=== PATIENT | male | born 1960 | race Caucasian/White ===

== ENCOUNTER 2018-09-07 05:37 | Observation (INO) | END 2018-09-08 13:11 | disposition home or self-care (01) ==

== ENCOUNTER 2018-11-16 05:32 | Inpatient (IN) | payer OTHER ==
[~2018-11-16] VITALS: Ht 175.3 cm; Wt 77.0 kg
[2018-11-16] VITALS (9 sets, daily range): BP systolic 120–183; BP diastolic 63–91; PULSE 78–106; RESP 16–20; Ht 175.3 cm; Wt 77.0 kg
[~2018-11-16 05:32] MED LIST: ALBU90AE INHALATION; AMLO-145 PO; ASPI-903 PO; ATOR20TA38 PO; DIAZ10TA4 PO; FER325 PO; FLUT1AER INH; LEVO750T8 PO; PRED20TA PO; SITA1TAB5 PO; TIOT18CA INH
[2018-11-16] MEDS ORDERED: METHYLPREDNISOLONE 125 MG INJ IV STA (06:10)
[2018-11-16] MEDS ORDERED: IPRATROPIUM (NEB) 0.5 MG/2.5 ML AMP NEB STA (06:10)
[2018-11-16] MEDS ORDERED: ALBUTEROL 0.083% (NEB) 2.5 MG/3 ML AMP NEB STA (06:10)
[2018-11-16] MEDS ORDERED: ASPIRIN 81 MG TAB PO STA (06:10)
[2018-11-16] MEDS ORDERED: AZITHROMYCIN 500MG/NS (PMX) 250 ML IVPB ONE (06:30)
[2018-11-16] MEDS ORDERED: SOD CHLORIDE 0.9% 0 ML IV ONE (07:22)
[2018-11-16] MEDS ORDERED: ONDANSETRON 4 MG INJ IV PRN ×2 (08:00→10:30)
[2018-11-16] MEDS ORDERED: SIMV20TA PO (08:00)
[2018-11-16] MEDS ORDERED: HUM100IN4 SC* (08:00)
[2018-11-16] MEDS ORDERED: ACETAMINOPHEN 325 MG TAB PO PRN ×2 (08:00→10:30)
[2018-11-16] MEDS ORDERED: FUROSEMIDE 40 MG INJ IV ONE (08:00)
[2018-11-16] MEDS ORDERED: AMLO-147 ORAL (08:02)
[2018-11-16] MEDS ORDERED: ASPI-817 PO (08:02)
[2018-11-16] MEDS ORDERED: CARV12.598 PO (08:02)
--- NOTE | 2018-11-16 08:03 | ERD ---
ER Documentation Chief Complaint Chief Complaint shortness of breath upon waking up. also c/o cp. hx of copd HPI Patient is a 58-year-old male with COPD and diabetes who presents with shortness of breath. The patient says "it feels like the same as the last time when I had COPD". He has chest pain. He has cough and pain with breathing. He felt sweaty at home. He does not use home oxygen. The symptoms started a few hours ago. He tried his inhaler. Upon review of old medical records the patient one previous visit to the ER in August 2018 and was admitted for COPD. ROS All systems reviewed and are negative except as per history of present illness. Medications Home Meds Active Scripts Amlodipine Besylate* (Amlodipine Besylate*) 5 Mg Tablet, 5 MG PO BID for 30 Da ys, #60 TAB 3 Refills Prov:AMERICA VANESSA 09/08/18 Levofloxacin* (Levofloxacin*) 750 Mg Tablet, 750 MG PO Q48H for 6 Days, #3 TAB Prov:AMERICA VANESSA 09/08/18 Prednisone* (Prednisone*) 20 Mg Tab, 40 MG PO DAILY for 7 Days, TAB See prescription for taper. Prov:AMERICA VANESSA 09/08/18 Albuterol Sulfate (Proair Respiclick) 90 Mcg Aer.pow.ba, 2 PUFFS INHALATION Q6 PRN for SHORTNESS OF BREATH, #1 BOTTLE 3 Refills Prov:AMERICA VANESSA 09/08/18 Fluticasone-Vilanterol (Breo Ellipta Inhaler) 100-25 Mcg/Actuation Aer.pow.ba, 1 INH INH DAILY, #1 INHALER 3 Refills Prov:AMERICA VANESSA 09/08/18 Ferrous Sulfate* (Ferrous Sulfate*) 325 Mg Tabec, 325 MG PO DAILY for 30 Days, TAB 3 Refills Prov:AMERICA VANESSA 09/08/18 Tiotropium [place]* (Spiriva*) 18 Mcg Cap.w.dev, 1 INH INH DAILY, #1 INHALER 3 Refills Prov:AMERICA VANESSA 09/08/18 Reported Medications Atorvastatin Calcium* (Atorvastatin Calcium*) 20 Mg Tablet, 20 MG PO QHS, #30 TAB 09/07/18 Diazepam* (Diazepam*) 10 Mg Tablet, 10 MG PO DAILY, TAB 09/07/18 Aspirin* (Aspirin* Chew) 81 Mg Tab.chew, 81 MG PO DAILY, TAB.CHEW 09/07/18 Sitagliptin Phos/Metformin HCl (Janumet 50-1,000 mg Tablet) 1 Each Tablet, 1 EACH PO BID, TAB 09/07/18 Allergies Allergies: Coded Allergies: No Known Allergy (Unverified , 09/07/18) PMhx/Soc History of Surgery: No Anesthesia Reaction: No Hx Neurological Disorder: No Hx Respiratory Disorders: Yes (COPD) Hx Cardiac Disorders: Yes (HTN) Hx Psychiatric Problems: No Hx Miscellaneous Medical Probl: Yes (DM) Hx Alcohol Use: Yes (once a month) Hx Substance Use: No Hx Tobacco Use: Yes Smoking Status: Current every day smoker FmHx Family History: No diabetes Physical Exam Vitals Vital Signs Date Temp Pulse Resp B/P (MAP) Pulse Ox O2 O2 Flow FiO2 Time Delivery Rate 11/16/18 88 100 07:58 11/16/18 85 19 87 Nasal 3.0 06:49 Cannula 11/16/18 98.3 100 31 166/74 76 Nasal 5.0 06:30 (104) Cannula 11/16/18 Nasal 4.0 05:55 Cannula 11/16/18 98.3 90 20 157/74 93 Nasal 4.0 05:55 (101) Cannula 11/16/18 Nasal 4 05:55 Cannula 11/16/18 98.3 98 20 185/81 86 05:35 (115) Physical Exam Const: Moderate distress Head: Atraumatic Eyes: Normal Conjunctiva ENT: Normal External Ears, Nose and Mouth. Neck: Full range of motion. No meningismus. Resp: Decreased breath sounds bilaterally Cardio: Regular rate and rhythm, no murmurs Abd: Soft, non tender, non distended. Normal bowel sounds Skin: Pale skin Back: No midline or flank tenderness Ext: No cyanosis, or edema Neur: Awake and alert Psych: Normal Mood and Affect Result Diagram: 11/16/18 0553 11/16/18 0545 Results 24 hrs Laboratory Tests Test 11/16/18 05:45 11/16/18 05:53 Sodium Level 140 mmol/L Potassium Level 4.9 mmol/L Chloride Level 107 mmol/L Carbon Dioxide Level 23 mmol/L Anion Gap 10 Blood Urea Nitrogen 46 mg/dl Creatinine 2.85 mg/dl Est Glomerular Filtrat Rate mL/min 23 mL/min Glucose Level 248 mg/dl Calcium Level 9.1 mg/dl Troponin I 0.027 ng/ml B-Type Natriuretic Peptide 9510 PG/ML White Blood Count 16.1 10^3/ul Red Blood Count 2.54 10^6/ul Hemoglobin 7.8 g/dl Hematocrit 23.5 % Mean Corpuscular Volume 92.5 fl Mean Corpuscular Hemoglobin 30.7 pg Mean Corpuscular Hemoglobin Concent 33.2 g/dl Red Cell Distribution Width 13.6 % Platelet Count 248 10^3/UL Mean Platelet Volume 11.0 fl Immature Granulocytes % 0.700 % Neutrophils % 66.8 % Lymphocytes % 25.7 % Monocytes % 5.0 % Eosinophils % 1.5 % Basophils % 0.3 % Nucleated Red Blood Cells % 0.0 /100WBC Immature Granulocytes # 0.110 10^3/ul Neutrophils # 10.8 10^3/ul Lymphocytes # 4.1 10^3/ul Monocytes # 0.8 10^3/ul Eosinophils # 0.2 10^3/ul Basophils # 0.1 10^3/ul Nucleated Red Blood Cells # 0.0 10^3/ul Current Medications Medications Dose Sig/Jacklyn Start Time Status Last (Trade) Ordered Route PRN Stop Time Admin Dose Reason Admin Aspirin 162 mg ONCE STAT 11/16/18 DC 11/16/18 (Aspirin) PO 06:10 06:25 11/16/18 06:12 Albuterol 5 mg ONCE STAT 11/16/18 DC 11/16/18 (Proventil NEB 06:10 06:49 0.083% (Neb)) 11/16/18 06:12 Ipratropium 0.5 mg ONCE STAT 11/16/18 DC 11/16/18 [place] NEB 06:10 06:49 (Atrovent 11/16/18 06:12 0.02% (Neb)) 125 mg ONCE STAT 11/16/18 DC 11/16/18 Methylprednis IV 06:10 06:24 olone Sodium 11/16/18 06:12 Succinate (Solu-Medrol) Azithromycin 250 ml @ ONCE ONCE 11/16/18 DC 11/16/18 250 mls/hr IVPB 06:30 06:25 11/16/18 07:29 Sodium 0 ml @ 0 Q0M ONCE 11/16/18 DC Chloride mls/hr IV 07:22 11/16/18 07:23 Furosemide 40 mg ONCE ONCE 11/16/18 (Lasix) IV 08:00 11/16/18 08:01 Ondansetron 4 mg ER BRIDGE 11/16/18 HCl (Zofran PRN IV 08:00 Inj) NAUSEA/VOMITI 11/17/18 07:59 NG 650 mg ER BRIDGE 11/16/18 Acetaminophen PRN PO 08:00 (Tylenol .MILD PAIN 11/17/18 07:59 Tab) 1-3 OR TEMP Procedures/MDM Chest x-ray shows pulmonary edema per radiology. EKG read by me: Rate/Rhythm: Regular rate and rhythm at a normal rate Intervals: Normal Impression: No evidence of ischemia or arrhythmia Smoking Cessation Therapy: Pt. was lectured for greater than 3 minutes on the health risks of continued smoking and the benefits of cessation. Patient is a 58-year-old male with COPD and diabetes who presents with shortness of breath and hypoxia. Chest x-ray does not show pneumothorax or pneumonia. There is pulmonary edema and the patient will be given Lasix 40 mg IV. The patient was started on high flow nasal cannula oxygen for hypoxia. I also considered pulmonary embolism but the patient has a creatinine of 2.85 and cannot receive a CT scan of the chest with contrast at this time. Therefore the patient will be admitted and may need a VQ scan. I spoke with Dr. Vazquez who is covering [facility]. [facility]. He is going to be transfused 2 units of packed red blood cells for hemoglobin of 7.8 which is anemic. There may be an issue with oxygen carrying capacity causing an issue with the hypoxia as well. The patient will be admitted to a telemetry bed. Critical Care: Time: 35 minutes excluding all billable proce dures. Treatments/Evaluations: Close monitoring and treatment of unstable vital signs, cardiorespiratory, and neurologic status, while maintaining tight balance of fluid, respiratory, and cardiac interventions. Departure Diagnosis: Primary Impression: Hypoxia Additional Impressions: Shortness of breath Anemia Anemia type: unspecified type Qualified Codes: D64.9 - Anemia, unspecified Condition: Serious DONNA GALAN MD Nov 16, 2018 08:03
[2018-11-16] MEDS ORDERED: LOSA100T15 ORAL (08:09)
[2018-11-16] MEDS ORDERED: VALS1TAB74 ORAL (08:09)
[2018-11-16] MEDS ORDERED: CLON-379 PO (08:09)
[2018-11-16] MEDS ORDERED: NACL 0.9% 3 ML SYG IV SCH (10:30)
[2018-11-16] MEDS ORDERED: NON-FORMULARY/PATIENT OWN MED (Sitagliptin Phos/Metformin HCl (Janumet 50-1,000 mg Tablet) PO SCH (10:30)
[2018-11-16] MEDS ORDERED: ZOLPIDEM 5 MG TAB PO PRN (10:30)
[2018-11-16] MEDS ORDERED: DOCUSATE SODIUM 100 MG CAP PO PRN (10:30)
[2018-11-16] MEDS ORDERED: GLUCOSE GEL 15 GRAM TUBE BUCCAL PRN (11:00)
[2018-11-16] MEDS ORDERED: GLUCAGON 1 MG INJ IM PRN (11:00)
[2018-11-16] MEDS ORDERED: GLUCOSE GEL 15 GRAM TUBE PO PRN ×2 (11:00)
[2018-11-16] MEDS ORDERED: DEXTROSE 50% 50 ML SYRINGE IV PRN ×2 (11:00)
[2018-11-16] MEDS: AMLODIPINE 10 MG TAB PO SCH (11:01)
[2018-11-16] MEDS: LOSARTAN 50 MG TAB PO SCH (11:02)
[2018-11-16] MEDS: ASPIRIN (EC) 81 MG TAB PO SCH (11:06)
[2018-11-16] MEDS: AZITHROMYCIN 250 MG TAB PO SCH (11:06)
[2018-11-16] MEDS: FAMOTIDINE 20 MG TAB PO SCH ×2 (11:06→21:00)
[2018-11-16] MEDS: ENOXAPARIN 40 MG/0.4 ML SYG SC SCH (11:20)
[2018-11-16] MEDS: INSULIN ASPART [NOVOLOG] 3 ML PEN SC SCH ×2 (11:34→17:46)
[2018-11-16] MEDS: METHYLPREDNISOLONE 125 MG INJ IV SCH ×2 (11:36→17:40)
[2018-11-16] MEDS: ALBUTEROL/IPRATROPIUM (NEB) 3 ML AMP HHN SCH ×3 (12:35→21:10)
--- NOTE | 2018-11-16 13:38 | HP ---
DATE OF ADMISSION: 11/16/2018 CHIEF COMPLAINT: Shortness of breath. HISTORY OF PRESENT ILLNESS: A 58-year-old male with history of COPD, chronic smoking, hypertension a nd type 2 diabetes mellitus, presented to emergency room with complaint of increasing shortness of br eath x1 day. The patient continues to smoke about half a pack of cigarettes per day. He was admitte d in 08/2018 with similar presentation and COPD exacerbation. On review of systems, he denies any ch est pain. He has had mild cough of clear sputum. No abdominal pain, nausea, vomiting. No fevers or chills. Initial evaluation revealed evidence of profound hypoxia. Oxygen saturation was in low 80s despite 3 to 4 liters of oxygen. The patient was placed on high flow oxygen. His hemoglobin was 7. 8. He denies any hematemesis. No bright red blood per rectum or melena. Chest x-ray showed mild di ffuse interstitial prominence most suggestive of interstitial edema in the acute setting. No infiltr ate was noted. PAST MEDICAL HISTORY: 1. COPD. 2. Hypertension. 3. Hyperlipidemia. 4. Type 2 diabetes mellitus. 5. Chronic smoker. MEDICATIONS PRIOR TO ADMISSION: 1. Albuterol. 2. Spiriva. 3. Iron supplements. 4. Amlodipine. 5. Coreg. 6. Clonidine. 7. Losartan. 8. Simvastatin. 9. Aspirin. 10. Diazepam. 11. Fluticasone and vilanterol inhaler. 12. Insulin 70/30. 13. Janumet. SOCIAL HISTORY: The patient admits to continuous smoking of at least half pack of cigarettes per day . He drinks alcohol on social occasions. PHYSICAL EXAMINATION: GENERAL: Well-developed, well-nourished, obese male who is in mild respiratory distress. VITAL SIGNS: Stable. He is afebrile. HEENT: Extraocular muscles are intact. Pupils are equal and reactive to light bilaterally. Sclerae are anicteric. Oropharynx is clear and moist. NECK: Supple. No JVD, no carotid bruits. LUNGS: Decreased breath sounds in all segura. No wheezes. CARDIAC: Regular rate and rhythm. No murmurs, rubs or gallops. ABDOMEN: Soft, nontender, nondistended. Normoactive bowel sounds. EXTREMITIES: No clubbing, cyanosis or edema. NEUROLOGICAL: Nonfocal. LABORATORY DATA: White blood cell count 16.1, hemoglobin 7.8, MCV is 92.5, platelet count is 248,000 . Sodium 140, potassium 4.9, chloride 107, bicarbonate 23, BUN 46, creatinine 2.85, glucose is 248. BNP is 9510. Troponin is 0.027. Serum iron is 35, TIBC is 267, percent saturation is 13. ASSESSMENT: 1. A 58-year-old male presenting with acute chronic obstructive pulmonary disease exacerbation. 2. Acute hypoxemic respiratory failure. 3. Chronic anemia with no evidence of gastrointestinal bleed. 4. Hypertension. 5. Type 2 diabetes mellitus. 6. Hyperlipidemia. 7. Stage III chronic kidney disease. 8. Chronic smoker. PLAN: 1. Admit to telemetry. 2. IV Solu-Medrol. 3. Respiratory treatments. 4. Oral Zithromax. 5. Pulmonary consultation was requested. Dictated By: PACO HAMMONDS/JUAN M Conf#: [id number] DID#: [id number]
[2018-11-16] MEDS: TIOTROPIUM 18 MCG CAPSULE INHA DEV INH SCH (16:30)
[2018-11-16] MEDS: FLUTICASONE/VILANTEROL 100-25 INH SCH (16:30)
--- NOTE | 2018-11-16 18:52 | CONS ---
DATE OF ADMISSION: 11/16/2018 DATE OF CONSULTATION: TYPE OF CONSULTATION: Pulmonary. REASON FOR CONSULTATION: Shortness of breath. Thank you, Dr. Vazquez, for this consultation. HISTORY OF PRESENT ILLNESS: This is a 58-year-old gentleman with extensive tobacco history ongoing p rior to this admission, presents with several-day history of increasing shortness of breath, orthopne a, PND, cough, no sputum production, no hemoptysis or hematemesis, was found to have moderate hypoxem ia on admission and moderate anemia. Denies any hemoptysis, hematemesis. No bright red blood per re ctum. Chest x-ray showed interstitial edema. PAST MEDICAL HISTORY: COPD, hypertension, hyperlipidemia and chronic tobacco use. MEDICATION LIST: Extensive. He does not require supplemental O2 at home. SOCIAL HISTORY: Continues to smoke half to 1 pack per day. PHYSICAL EXAMINATION: GENERAL: Well-nourished, well-developed gentleman, comfortable at rest, in no acute distress. VITAL SIGNS: Currently afebrile, pulse is 80, blood pressure 170/85, O2 saturation 96%, FiO2 of 6 li ters. NECK: Supple. No JVD or lymphadenopathy. CARDIAC: S1, S2. No added sounds or murmurs. CHEST: Diminished air entry bilaterally. ABDOMEN: Soft, nontender. No guarding or rebound. EXTREMITIES: No cyanosis, clubbing, edema. NEUROLOGIC: Grossly intact. No focal deficits. LABORATORY DATA: White count 16.1, hemoglobin 7.8, platelets of 248. BUN 46, creatinine 2.85. BNP 9510. IMPRESSION AND PLAN: 1. Dyspnea, likely secondary to combination of chronic obstructive pulmonary disease exacerbation an d congestive cardiac failure likely significant diastolic dysfunction. 2. Anemia, probably secondary to renal insufficiency. Creatinine of 2.85. Unclear what his prior c reatinine was. I recommend: 1. Steroid taper. 2. Bronchodilators. 3. Echocardiogram. 4. GI consultation for colonoscopy and EGD. 5. Consider workup for multiple myeloma. 6. DVT and GI prophylaxis. Dictated By: SHEN CORONADO MD SV/NTS Conf#: [id number] DID#: [id number] CC: PACO VAZQUEZ MD;*EndCC*
[2018-11-16] MEDS ORDERED: INSULIN GLARGINE [LANTus] (100 UNITS/ML) SYG SC SCH (20:00)
[2018-11-16] MEDS: Insulin NOVOLOG SS MODERATE Algorithm(NPO/TPN/ENTERAL FEEDS) SC SCH (20:52)
[2018-11-16] MEDS: SOD CHLORIDE 0.45% 1,000 ML IV SCH (21:00)
[2018-11-16] MEDS ORDERED: INSULIN ASPART [NOVOLOG] 3 ML PEN SC SCH (21:00)
[2018-11-16] MEDS ORDERED: DIAZEPAM 5 MG TAB PO SCH (21:00)
[2018-11-17] VITALS (7 sets, daily range): BP systolic 101–148; BP diastolic 58–79; PULSE 69–80; RESP 18–19
[2018-11-17] MEDS: ALBUTEROL/IPRATROPIUM (NEB) 3 ML AMP HHN SCH ×3 (01:00→13:45)
[2018-11-17] MEDS: Insulin NOVOLOG SS MODERATE Algorithm(NPO/TPN/ENTERAL FEEDS) SC SCH ×4 (01:30→12:02)
[2018-11-17] MEDS: SOD CHLORIDE 0.45% 1,000 ML IV SCH ×2 (04:59→12:26)
[2018-11-17] MEDS: METHYLPREDNISOLONE 125 MG INJ IV SCH ×3 (05:44→11:57)
[2018-11-17] MEDS ORDERED: INSULIN ASP PROT/ASPART (70/30) PEN SC SCH (07:55)
[2018-11-17] MEDS ORDERED: AZIT250T13 PO (08:50)
[2018-11-17] MEDS: TIOTROPIUM 18 MCG CAPSULE INHA DEV INH SCH (08:57)
[2018-11-17] MEDS: FLUTICASONE/VILANTEROL 100-25 INH SCH (08:58)
[2018-11-17] MEDS ORDERED: INFLUENZA VIRUS VACCINE 0.5 ML (DISPENSING) IM* ONE (09:00)
[2018-11-17] MEDS: ASPIRIN (EC) 81 MG TAB PO SCH (09:02)
[2018-11-17] MEDS: AMLODIPINE 10 MG TAB PO SCH (09:02)
[2018-11-17] MEDS: FAMOTIDINE 20 MG TAB PO SCH (09:02)
[2018-11-17] MEDS: AZITHROMYCIN 250 MG TAB PO SCH (09:02)
[2018-11-17] MEDS: LOSARTAN 50 MG TAB PO SCH (09:03)
[2018-11-17] MEDS: ENOXAPARIN 40 MG/0.4 ML SYG SC SCH (09:08)
--- NOTE | 2018-11-17 09:28 | PDOCDIS ---
Discharge Instructions DIAGNOSIS Discharge Diagnosis 58-year-old male with acute COPD exacerbation, resolved Chronic smoker Anemia of chronic disease, status post packed RBC transfusion Hypertension Type 2 diabetes mellitus Stage IV chronic kidney disease 58-year-old male with COPD and long history of tobacco use, presented with complaint of shortness of breath. He was diagnosed with acute COPD exacerbation. Initially, patient was quite hypoxic and required high flow oxygen. He was placed on Solu-Medrol, respiratory treatments, and Zithromax. Chest x-ray did not show any infiltrates. Pulmonary consultation was requested. By the following day, his respiratory status was back to baseline. I had a long discussion with him regarding smoking cessation. Physical exam was unremarkable. Patient is in a stable condition for discharge. Repeat ABG showed PO2 of 82 on room air. I prescribed oral Zithromax. Patient will continue his home medications including inhalers. Patient was found to have hemoglobin of 7.8 on admission. There was no hematemesis, bright red blood per rectum, or melena. He received packed RBC transfusion and repeat hemoglobin was 9.2. Serum iron was at the low range of normal. Previous serum folate and B12 were normal. Anemia is most likely due to underlying renal insufficiency. However, I recommended GI evaluation as outpatient. At this point, patient is refusing endoscopy. But he said he will consider it as outpatient. CONDITION [id number] Patient Condition: [id number] Good HOME CARE INSTRUCTIONS: [id number] Diet Instructions: [id number] Activity Restrictions: [id number] No Restrictions FOLLOW UP/APPOINTMENTS Follow-up Plan PCP in 1 week Gastroenterology in 1 week PACO WETZEL MD Nov 17, 2018 09:28
--- NOTE | 2018-11-17 15:18 | CONS ---
Consult Date/Type/Reason Admit Date/Time Nov 16, 2018 at 07:53 Initial Consult Date Type of Consult Pulmonary Date/Time of Note DATE: 11/17/18 TIME: 15:15 Subjective Patient stable this morning no respiratory distress now on room air ambulating without dyspnea. Objective Vital Signs Date Temp Pulse Resp B/P (MAP) Pulse Ox O2 O2 Flow FiO2 Time Delivery Rate 11/17/18 82 20 96 21 13:52 11/17/18 98.7 101/58 Room Air 11:22 (72) 11/16/18 3.0 06:49 Intake and Output 11/16/18 11/16/18 11/17/18 1515:00 23:00 07:00 IntakeIntake Total 1600 ml 1365 ml OutputOutput Total 600 ml 300 ml BalanceBalance 1000 ml 1065 ml Exam PHYSICAL EXAMINATION: GENERAL: Well-nourished, well-developed gentleman, comfortable at rest, in no acute distress. VITAL SIGNS: As above NECK: Supple. No JVD or lymphadenopathy. CARDIAC: S1, S2. No added sounds or murmurs. CHEST: Diminished air entry bilaterally. ABDOMEN: Soft, nontender. No guarding or rebound. EXTREMITIES: No cyanosis, clubbing, edema. NEUROLOGIC: Grossly intact. No focal deficits. Vent Setting Fraction of Inspired Oxygen pe: 21 Results/Medications Result Diagram: 11/17/18 0541 11/17/18 0541 Results 24 hrs Laboratory Tests Test 11/16/18 17:36 11/16/18 17:39 11/16/18 19:01 11/16/18 20:29 Bedside Glucose 417 *H 433 *H 474 *H Glucose Level 470 #*H Test 11/17/18 01:08 11/17/18 05:33 11/17/18 05:41 11/17/18 07:07 Bedside Glucose 414 *H 276 H White Blood 16.1 H Count Red Blood Count 3.07 #L Hemoglobin 9.2 L Hematocrit 27.5 L Mean Corpuscular 89.6 Volume Mean Corpuscular 30.0 Hemoglobin Mean Corpuscular 33.5 Hemoglobin Ana nt Red Cell 14.2 Distribution Width Platelet Count 223 Mean Platelet 11.5 H Volume Immature 0.400 Granulocytes % Neutrophils % 76.3 Lymphocytes % 19.7 Monocytes % 3.5 Eosinophils % 0.0 Basophils % 0.1 Nucleated Red 0.0 Blood Cells % Immature 0.060 H Granulocytes # Neutrophils # 12.3 H Lymphocytes # 3.2 H Monocytes # 0.6 Eosinophils # 0.0 Basophils # 0.0 Nucleated Red 0.0 Blood Cells # Sodium Level 140 Potassium Level 4.8 Chloride Level 110 Carbon Dioxide 20 L Level Anion Gap 10 Blood Urea 61 H Nitrogen Creatinine 3.23 H Est Glomerular 20 L Filtrat Rate mL/min Glucose Level 281 #H Hemoglobin A1c 7.2 H Calcium Level 8.9 Lab Scanned BLOOD TRANSFUSI Report ON Test 11/17/18 08:00 11/17/18 08:27 11/17/18 11:55 Blood Gas Blood arterial Specimen Source Arterial Blood 11/17/2018 8:26: Date Drawn 51 AM Arterial Blood 7.405 pH (Temp corrected) Arterial Blood 31.4 L pCO2 (Temp correct) Arterial Blood 82.3 pO2 (Temp corrected) Arterial Blood 19.2 L HCO3 Arterial Blood -4.7 L Base Excess Arterial Blood 95.2 Oxygen Saturatio n Jorge Alberto Test ACCEPTAB Arterial Blood Left Radial Gas Puncture Site Arterial 0.3 Blood Carboxyhem oglobin Arterial Blood 0.3 Methemoglobin Blood Gas A-a O2 29.8 H Differential Oxyhemoglobin 94.6 Percent Blood Gas 37.0 Temperature Blood Gas ROOM AIR Modality FiO2 21.0 Blood Gas TM Notified Whom Blood Gas 11/17/2018 8:34: Notified Time 28 AM Bedside Glucose 192 207 Assessment/Plan Hospital Course (Demo Recall) IMPRESSION 1. Dyspnea, likely secondary to combination of chronic obstructive pulmonary disease exacerbation and congestive cardiac failure likely significant diastolic dysfunction. 2. Anemia, probably secondary to renal insufficiency. Plan 1. Steroid taper. 2. Bronchodilators. 3. Renal recs 4. GI consultation for colonoscopy and EGD. 5. Consider workup for multiple myeloma. 6. DVT and GI prophylaxis. DC planning SH[facility] CORONADO MD, [facility] Nov 17, 2018 15:18
== END 2018-11-17 15:10 | disposition home or self-care (01) | DRG 190 ==
LOC: E/R 05:32 → TEL 07:53
PROVIDERS: ADMIT Internal Medicine; ATTEND Internal Medicine
PROC: 30233N1 Transfusion of Nonautologous Red Blood Cells into Peripheral Vein, Percutaneous Approach (ICD-10-PCS; principal; 2018-11-16)
DX: J44.1 Chronic obstructive pulmonary disease with (acute) exacerbation (principal); J96.01 Acute respiratory failure with hypoxia; I13.0 Hypertensive heart and chronic kidney disease with heart failure and stage 1 through stage 4 chronic kidney disease, or unspecified chronic kidney disease; I50.30 Unspecified diastolic (congestive) heart failure; N18.3 Chronic kidney disease, stage 3 (moderate); E78.5 Hyperlipidemia, unspecified; F17.200 Nicotine dependence, unspecified, uncomplicated; D63.1 Anemia in chronic kidney disease
CPT/HCPCS: 36415; 36430; 36600; 71045; 80048; 82803; 82947; 82962; 83036; 83540; 83880; 84484; 85025; 85378; 86850; 86900; 86901; 86920; 90686; 93005; 94640; 94664; 96374; 96375; J0456; J1650; J1815; J1817; J1940; J2930; J7040; P9016

== ENCOUNTER 2019-01-05 19:11 | Emergency (ER) | payer OTHER ==
[~2019-01-05] VITALS: Ht 170.2 cm; Wt 73.3 kg
[~2019-01-05 19:11] MED LIST changes: -AMLO-145 PO; +AMLO-147 ORAL; +ASPI-817 PO; -ASPI-903 PO; -ATOR20TA38 PO; +AZIT250T13 PO; +CARV12.598 PO; +CLON-379 PO; +HUM100IN4 SC*; -LEVO750T8 PO; +LOSA100T15 ORAL; -PRED20TA PO; +SIMV20TA PO; +VALS1TAB74 ORAL
[2019-01-05 19:18] VITALS: Ht 170.2 cm; Wt 73.3 kg
[2019-01-05 21:42] VITALS: BP 169/86; PULSE 95; RESP 14
--- NOTE | 2019-01-05 21:46 | ERD ---
ER Documentation Chief Complaint Chief Complaint SOB X'S 3 DAYS, RECENTLY ADMITTED FOR PNA HPI 58-year-old male presenting with central chest pain with associated shortness of breath. The pain is aching, worse with inspiration, associated with shortness of breath at rest. He states that he thinks he came down with a cold about 3 days ago. His symptoms are constant without any alleviating factors. He denies any cough or hemoptysis. No fevers or chills. No runny nose. No abdominal pain. He states he feels like he has a throat infection. He started taking azithromycin yesterday without any relief. ROS All systems reviewed and are negative except as per history of present illness. Medications Home Meds Active Scripts Azithromycin* (Azithromycin*) 250 Mg Tablet, 250 MG PO DAILY, #4 TAB Prov:PACO WETZEL MD 11/17/18 Albuterol Sulfate (Proair Respiclick) 90 Mcg Aer.pow.ba, 2 PUFFS INHALATION Q6 PRN for SHORTNESS OF BREATH, #1 BOTTLE 3 Refills Prov:AMERICA VANESSA 09/08/18 Fluticasone-Vilanterol (Breo Ellipta Inhaler) 100-25 Mcg/Actuation Aer.pow.ba, 1 INH INH DAILY, #1 INHALER 3 Refills Prov:AMERICA VANESSA 09/08/18 Ferrous Sulfate* (Ferrous Sulfate*) 325 Mg Tabec, 325 MG PO DAILY for 30 Days, TAB 3 Refills Prov:AMERICA VANESSA 09/08/18 Tiotropium [place]* (Spiriva*) 18 Mcg Cap.w.dev, 1 INH INH DAILY, #1 INHALER 3 Refills Prov:AMERICA VANESSA 09/08/18 Reported Medications Clonidine Hcl* (Clonidine Hcl*) 0.1 Mg Tab, 0.1 MG PO Q8H, TAB 11/16/18 Losartan Potassium* (Losartan Potassium*) 100 Mg Tablet, 1 TAB ORAL DAILY 11/16/18 Valsartan-Hydrochlorothiazide (Valsartan-HCTZ) 80-12.5 Mg Tablet, 1 TAB ORAL DAILY 11/16/18 Carvedilol* (Coreg*) 12.5 Mg Tablet, 12.5 MG PO BID, #60 TAB 11/16/18 Aspirin* (Aspirin* EC) 81 Mg Tablet.dr, 81 MG PO DAILY, TAB 11/16/18 Amlodipine Besylate* (Amlodipine Besylate*) 10 Mg Tablet, 10 MG ORAL DAILY 11/16/18 Simvastatin* (Zocor*) 20 Mg Tablet, 20 MG PO QHS, #30 TAB 11/16/18 Hum Insulin NPH/Reg Insulin Hm (Humulin 70/30 Kwikpen) 100 Unit/1 Ml Insuln.pen, 10 UNITS SC* DAILY 11/16/18 Diazepam* (Diazepam*) 10 Mg Tablet, 10 MG PO DAILY, TAB 09/07/18 Sitagliptin Phos/Metformin HCl (Janumet 50-1,000 mg Tablet) 1 Each Tablet, 1 EACH PO BID, TAB 09/07/18 Allergies Allergies: Coded Allergies: No Known Allergy (Unverified , 11/16/18) PMhx/Soc History of Surgery: No Anesthesia Reaction: No Hx Neurological Disorder: No Hx Respiratory Disorders: Yes (COPD) Hx Cardiac Disorders: Yes Hx Psychiatric Problems: No Hx Miscellaneous Medical Probl: No Hx Alcohol Use: No Hx Substance Use: No Hx Tobacco Use: No (former; quit 2months ago) Smoking Status: Former smoker FmHx Family History: No diabetes Physical Exam Vitals Vital Signs Date Temp Pulse Resp B/P (MAP) Pulse Ox O2 O2 Flow FiO2 Time Delivery Rate 01/05/19 97.2 87 18 159/83 99 19:18 (108) Physical Exam Const: No acute distress Head: Atraumatic Eyes: Normal Conjunctiva ENT: Normal External Ears, Nose and Mouth. Somewhat hoarse voice. Posterior oropharynx without erythema, exudate, or swelling. No drooling. No stridor. Neck: Full range of motion. No meningismus. No lymphadenopathy Resp: Clear to auscultation bilaterally Cardio: Regular rate and rhythm, no murmurs. 2+ distal pulses in all 4 extremities Abd: Soft, non tender, non distended. Normal bowel sounds Skin: No petechiae or rashes Back: No midline or flank tenderness Ext: No cyanosis, or edema Neur: Awake and alert, normal speech, no facial asymmetry, moving all extremities Psych: Normal Mood and Affect Result Diagram: 01/05/19194301/05/191943 Results 24 hrs Laboratory Tests Test 01/05/19 19:44 01/05/19 20:03 White Blood Count 11.5 10^3/ul Red Blood Count 2.99 10^6/ul Hemoglobin 9.1 g/dl Hematocrit 27.3 % Mean Corpuscular Volume 91.3 fl Mean Corpuscular Hemoglobin 30.4 pg Mean Corpuscular Hemoglobin Concent 33.3 g/dl Red Cell Distribution Width 14.5 % Platelet Count 277 10^3/UL Mean Platelet Volume 10.7 fl Immature Granulocytes % 0.300 % Neutrophils % % Lymphocytes % % Monocytes % % Eosinophils % % Basophils % % Nucleated Red Blood Cells % 0.0 /100WBC Immature Granulocytes # 0.040 10^3/ul Neutrophils # 10^3/ul Lymphocytes # 10^3/ul Monocytes # 10^3/ul Eosinophils # 10^3/ul Basophils # 10^3/ul Nucleated Red Blood Cells # 10^3/ul Sodium Level 143 mmol/L Potassium Level 4.6 mmol/L Chloride Level 110 mmol/L Carbon Dioxide Level 23 mmol/L Anion Gap 10 Blood Urea Nitrogen 50 mg/dl Creatinine 3.22 mg/dl Est Glomerular Filtrat Rate mL/min 20 mL/min Glucose Level 112 mg/dl Calcium Level 9.3 mg/dl Troponin I 0.015 ng/ml B-Type Natriuretic Peptide 6990 PG/ML Blood Gas Specimen Source Blood venous Arterial Blood Date Drawn 01/05/2019 8:30:18 PM Arterial Blood Gas Puncture Site VENOUS LINE Jorge Alberto Test N/A Venous Blood pH 7.353 Venous Blood pCO2 (Temp Corrected) 45.0 mmHG Venous Blood pO2 (Temp Corrected) 35.9 mmHG Venous Blood HCO3 24.5 mmol/L Venous Blood Oxygen Saturation 67.2 mmHG Venous Blood Base Excess -1.1 mmol/L Venous Blood Total Hemoglobin 9.0 g/dl Venous Blood Oxyhemoglobin 66.9 % Venous Blood Methemoglobin 0.1 % Carboxyhemoglobin 0.3 % Blood Gas Temperature 37.0 C Blood Gas Modality ROOM AIR FiO2 21.0 % Blood Gas Notified Whom AA Blood Gas Notified Time 01/05/2019 8:36:00 PM Procedures/MDM EMERGENT LABS AND DIAGNOSTIC STUDIES: Lab Results above were reviewed and interpreted by me. CBC: Evidence of mild anemia, chronic BMP: Elevated BUN and creatinine, consistent with CKD, at patient's baseline. No evidence of clinically significant electrolyte abnormality, acidosis,hypoglycemia Troponin within normal limits, not indicative of cardiac ischemia BNP elevated, not significantly increased from patient's baseline 12-lead EKG was interpreted by Mayra Chandler MD: Sinus rhythm with occasional PVCs and 83 bpm LVH Septal Q waves Inferior ST depressions, concerning for possible ischemia No STEMI. Radiology Results as interpreted by Radiology below were reviewed by Kp Chandler MD: Chest x-ray shows no acute abnormalities Initial Nursing notes reviewed. Previous Medical Records requested via the Electronic Health Record. EMERGENCY DEPARTMENT COURSE / MEDICAL DECISION MAKING: Patient is presenting with chest pain and shortness of breath with complaints of sore throat. Vitals are unremarkable. Workup for ACS was initiated. Chest x- ray did not show any acute abnormalities. EKG was somewhat concerning for possible inferior ischemia, however troponin is within normal limits. BNP is at his baseline. Renal function is at his baseline as well. Lower suspicion for pulmonary embolism. I cannot rule out acute coronary syndrome at this time. Other possibilities include esophagitis, acid reflux, esophageal spasm, bronchitis. I recommended admission given his EKG changes and high risk history. However the patient does not want to stay in the hospital as he has important meetings to attend. The patient has made the decision to leave this Emergency Department and any ongoing care against the advice of the emergency physician. The patient has been informed of and verbalized understanding of the inherent risks of this decision, including , disability. The patient explained to me the reason for wanting to sign out against medical advice. The patient has the capacity to make this decision and accepts the responsibility of leaving at this time. The patient and all necessary parties have been advised that the patient may return at any time for further evaluation or treatment. The patient's condition at time of discharge is guarded. Departure Diagnosis: Primary Impression: Shortness of breath Additional Impression: Chest pain at rest Condition: Fair TRAVISNELLIE R. MD Jan 05, 2019 21:46
== END 2019-01-05 21:44 | disposition left against medical advice (07) ==
LOC: E/R 19:11
DX: R06.02 Shortness of breath (principal); R07.9 Chest pain, unspecified; J44.9 Chronic obstructive pulmonary disease, unspecified; Z79.4 Long term (current) use of insulin; Z79.82 Long term (current) use of aspirin; Z87.891 Personal history of nicotine dependence
CPT/HCPCS: 36415; 71045; 80048; 82803; 83880; 84484; 85025; 93005; Z7502

== ENCOUNTER 2019-05-16 09:01 | Emergency (ER) | payer OTHER ==
[~2019-05-16] VITALS: Ht 172.7 cm; Wt 76.8 kg
[2019-05-16 09:04] VITALS: Ht 172.7 cm; Wt 76.8 kg
[2019-05-16] MEDS ORDERED: NITROGLYCERIN 2% 1 GM OINT PKT TD STA (09:13)
[2019-05-16] MEDS ORDERED: ASPIRIN 325 MG TAB PO STA (09:13)
[2019-05-16 10:36] VITALS: BP 173/89; PULSE 82; RESP 20
== END 2019-05-16 10:41 | disposition left against medical advice (07) ==
LOC: E/R 09:01
DX: D64.9 Anemia, unspecified (principal); N28.9 Disorder of kidney and ureter, unspecified; J44.9 Chronic obstructive pulmonary disease, unspecified; F17.210 Nicotine dependence, cigarettes, uncomplicated; Z79.4 Long term (current) use of insulin; Z79.82 Long term (current) use of aspirin
CPT/HCPCS: 36415; 71045; 80053; 84484; 85025; 93005; Z7502; Z7610

== ENCOUNTER 2019-06-06 10:07 | Inpatient (IN) | payer OTHER ==
[~2019-06-06] VITALS: Ht 175.3 cm; Wt 78.8 kg
[~2019-06-06 10:07] MED LIST changes: +CARAS PO; +CARV25TA79 PO; +PANT40TA4 PO
[2019-06-06 16:21] VITALS: Ht 175.3 cm; Wt 78.8 kg
[2019-06-06 16:28] VITALS: BP 173/78; PULSE 97; RESP 18
[2019-06-06] MEDS ORDERED: GLUCOSE GEL 15 GRAM TUBE BUCCAL PRN (18:00)
[2019-06-06] MEDS ORDERED: GLUCOSE GEL 15 GRAM TUBE PO PRN ×2 (18:00)
[2019-06-06] MEDS: INSULIN ASPART [NOVOLOG] 3 ML PEN SC SCH ×3 (18:00→22:02)
[2019-06-06] MEDS ORDERED: NACL 0.9% 3 ML SYG IV SCH (18:00)
[2019-06-06] MEDS ORDERED: ACETAMINOPHEN 325 MG TAB PO PRN (18:00)
[2019-06-06] MEDS ORDERED: FUROSEMIDE 40 MG INJ IV ONE (18:00)
[2019-06-06] MEDS ORDERED: DEXTROSE 50% 50 ML SYRINGE IV PRN ×2 (18:00)
[2019-06-06] MEDS ORDERED: DOCUSATE SODIUM 100 MG CAP PO PRN (18:00)
[2019-06-06] MEDS ORDERED: GLUCAGON 1 MG INJ IM PRN (18:00)
[2019-06-06] MEDS ORDERED: ONDANSETRON 4 MG INJ IV PRN (18:00)
[2019-06-06] MEDS ORDERED: NITROGLYCERIN (SL) 0.4 MG TAB SL PRN (18:00)
[2019-06-06] MEDS ORDERED: MAGNESIUM HYDROXIDE 30ML CUP PO PRN (18:00)
[2019-06-06] MEDS ORDERED: BISACODYL 10 MG SUPP PR PRN (18:00)
[2019-06-06] MEDS ORDERED: ALBUTEROL/IPRATROPIUM (NEB) 3 ML AMP HHN PRN (19:00)
[2019-06-06 19:16] VITALS: BP 136/70; PULSE 100; PULSE 108; RESP 20
[2019-06-06] MEDS: INSULIN GLARGINE [LANTus] (100 UNITS/ML) SYG SC SCH (22:02)
[2019-06-06 23:41] VITALS: BP 151/73; PULSE 97; PULSE 99; RESP 22
[2019-06-07] MEDS: ALBUTEROL/IPRATROPIUM (NEB) 3 ML AMP HHN SCH ×3 (00:58→15:32)
[2019-06-07] MEDS: ACCU-CHEK XX SCH (02:00)
[2019-06-07 03:39] VITALS: BP 147/72; PULSE 100; PULSE 96; RESP 18
[2019-06-07] MEDS ORDERED: PANTOPRAZOLE 40 MG INJ IV SCH (06:00)
[2019-06-07 07:19] VITALS: BP 151/72; PULSE 103; RESP 19
[2019-06-07] MEDS: INSULIN ASPART [NOVOLOG] 3 ML PEN SC SCH ×9 (07:39→20:16)
[2019-06-07] MEDS: TIOTROPIUM 18 MCG CAPSULE INHA DEV INH SCH (09:31)
[2019-06-07] MEDS: FERROUS SULFATE (EC) 325 MG TAB PO SCH (09:31)
[2019-06-07] MEDS: FLUTICASONE/VILANTEROL 100-25 INH SCH (09:31)
[2019-06-07 11:25] VITALS: BP 167/76; PULSE 97; RESP 20
[2019-06-07] MEDS ORDERED: FUROSEMIDE 40 MG INJ ONE (13:04)
[2019-06-07] MEDS ORDERED: FUROSEMIDE 40 MG INJ IV ONE (15:30)
[2019-06-07] MEDS: hydrALAzine 20 MG INJ IV PRN (17:04)
[2019-06-07 19:27] VITALS: BP 163/77; PULSE 101; RESP 18
[2019-06-07] MEDS: INSULIN GLARGINE [LANTus] (100 UNITS/ML) SYG SC SCH (20:00)
[2019-06-08] VITALS (8 sets, daily range): BP systolic 132–171; BP diastolic 59–78; PULSE 70–98; RESP 18–19
[2019-06-08] MEDS: ACCU-CHEK XX SCH (02:00)
[2019-06-08] MEDS: PANTOPRAZOLE (EC) 40 MG TAB PO SCH (05:35)
[2019-06-08] MEDS: INSULIN ASPART [NOVOLOG] 3 ML PEN SC SCH ×7 (07:37→21:00)
[2019-06-08] MEDS: TIOTROPIUM 18 MCG CAPSULE INHA DEV INH SCH (08:13)
[2019-06-08] MEDS: FLUTICASONE/VILANTEROL 100-25 INH SCH (08:16)
[2019-06-08] MEDS: ALBUTEROL/IPRATROPIUM (NEB) 3 ML AMP HHN SCH ×3 (08:20→17:27)
[2019-06-08] MEDS ORDERED: AMLODIPINE 5 MG TAB PO SCH (09:00)
[2019-06-08] MEDS: FERROUS SULFATE (EC) 325 MG TAB PO SCH (09:00)
[2019-06-08] MEDS ORDERED: LOSARTAN 50 MG TAB PO SCH (09:00)
[2019-06-08] MEDS ORDERED: SOD CHLORIDE 0.9% 250 ML IV* ONE (13:42)
[2019-06-08] MEDS ORDERED: BISACODYL (EC) 5 MG TAB PO ONE (17:00)
[2019-06-08] MEDS ORDERED: PEG/ELECTROLYTES 4L BTL PO ONE (18:00)
[2019-06-08] MEDS: INSULIN GLARGINE [LANTus] (100 UNITS/ML) SYG SC SCH (21:47)
[2019-06-09] VITALS (14 sets, daily range): BP systolic 150–189; BP diastolic 64–91; PULSE 84–93; RESP 14–21
[2019-06-09] MEDS: ALBUTEROL/IPRATROPIUM (NEB) 3 ML AMP HHN SCH ×4 (00:13→23:17)
[2019-06-09] MEDS: ACCU-CHEK XX SCH (02:00)
[2019-06-09] MEDS ORDERED: PEG/ELECTROLYTES 4L BTL PO ONE (05:00)
[2019-06-09] MEDS ORDERED: BISACODYL (EC) 5 MG TAB PO ONE (05:00)
[2019-06-09] MEDS: PANTOPRAZOLE (EC) 40 MG TAB PO SCH ×3 (05:31→20:30)
[2019-06-09] MEDS: INSULIN ASPART [NOVOLOG] 3 ML PEN SC SCH ×7 (08:00→20:23)
[2019-06-09] MEDS: FLUTICASONE/VILANTEROL 100-25 INH SCH (08:34)
[2019-06-09] MEDS: FERROUS SULFATE (EC) 325 MG TAB PO SCH (08:35)
[2019-06-09] MEDS: TIOTROPIUM 18 MCG CAPSULE INHA DEV INH SCH (08:38)
[2019-06-09] MEDS ORDERED: LABETALOL HCL 20MG INJ ONE (16:18)
[2019-06-09] MEDS ORDERED: hydrALAzine 20 MG INJ IV PRN (17:00)
[2019-06-09] MEDS ORDERED: LABETALOL HCL 20MG INJ IV PRN (17:00)
[2019-06-09] MEDS ORDERED: PROPOFOL 20 ML ONE ×2 (17:04→18:09)
[2019-06-09] MEDS ORDERED: hydrALAzine 20 MG INJ ONE (17:14)
[2019-06-09] MEDS ORDERED: FENTAnyl 50 MCG/ML VIAL ONE (17:28)
[2019-06-09] MEDS: SUCRALFATE (100 MG/ML) 10ML CUP PO SCH ×3 (18:55→20:30)
[2019-06-09] MEDS: INSULIN GLARGINE [LANTus] (100 UNITS/ML) SYG SC SCH (20:00)
[2019-06-10] VITALS (8 sets, daily range): BP systolic 137–173; BP diastolic 63–84; PULSE 80–92; RESP 14–18
[2019-06-10] MEDS: ACCU-CHEK XX SCH (02:00)
[2019-06-10] MEDS: INSULIN ASPART [NOVOLOG] 3 ML PEN SC SCH ×7 (07:51→21:00)
[2019-06-10] MEDS: ALBUTEROL/IPRATROPIUM (NEB) 3 ML AMP HHN SCH ×2 (08:00→16:00)
[2019-06-10] MEDS: FLUTICASONE/VILANTEROL 100-25 INH SCH (08:51)
[2019-06-10] MEDS: PANTOPRAZOLE (EC) 40 MG TAB PO SCH ×2 (08:52→21:00)
[2019-06-10] MEDS: FERROUS SULFATE (EC) 325 MG TAB PO SCH (08:52)
[2019-06-10] MEDS: TIOTROPIUM 18 MCG CAPSULE INHA DEV INH SCH (08:52)
[2019-06-10] MEDS: SUCRALFATE (100 MG/ML) 10ML CUP PO SCH ×4 (08:52→21:00)
[2019-06-10] MEDS: hydrALAzine 20 MG INJ IV PRN ×2 (20:30→21:14)
[2019-06-11] MEDS: ALBUTEROL/IPRATROPIUM (NEB) 3 ML AMP HHN SCH
[2019-06-11] MEDS: INSULIN GLARGINE [LANTus] (100 UNITS/ML) SYG SC SCH (00:08)
[2019-06-11 00:30] VITALS: BP 162/77; PULSE 79; RESP 18
[2019-06-11] MEDS: ACCU-CHEK XX SCH (02:00)
[2019-06-11 04:44] VITALS: BP 169/62; PULSE 84; RESP 18
== END 2019-06-11 06:45 | disposition home or self-care (01) | DRG 811 ==
LOC: E/R 10:07 → 6WM 12:24 → EDBEDREQSVC 13:46 → EDBEDREQ 13:46 → EDBEDREQTM 13:46
PROVIDERS: ADMIT Internal Medicine; ATTEND Internal Medicine
PROC: 30233N1 Transfusion of Nonautologous Red Blood Cells into Peripheral Vein, Percutaneous Approach (ICD-10-PCS; principal; 2019-06-07)
PROC: 0DB38ZX Excision of Lower Esophagus, Via Natural or Artificial Opening Endoscopic, Diagnostic (ICD-10-PCS; 2019-06-09)
PROC: 0DB68ZX Excision of Stomach, Via Natural or Artificial Opening Endoscopic, Diagnostic (ICD-10-PCS; 2019-06-09)
PROC: 0DJD8ZZ Inspection of Lower Intestinal Tract, Via Natural or Artificial Opening Endoscopic (ICD-10-PCS; 2019-06-09)
PROC: 0W3P8ZZ Control Bleeding in Gastrointestinal Tract, Via Natural or Artificial Opening Endoscopic (ICD-10-PCS; 2019-06-11)
PROC: 0DBK8ZZ Excision of Ascending Colon, Via Natural or Artificial Opening Endoscopic (ICD-10-PCS; 2019-06-11)
DX: D62 Acute posthemorrhagic anemia (principal); K31.811 Angiodysplasia of stomach and duodenum with bleeding; N17.9 Acute kidney failure, unspecified; N18.4 Chronic kidney disease, stage 4 (severe); I12.9 Hypertensive chronic kidney disease with stage 1 through stage 4 chronic kidney disease, or unspecified chronic kidney disease; E11.22 Type 2 diabetes mellitus with diabetic chronic kidney disease; K20.9 Esophagitis, unspecified; K29.70 Gastritis, unspecified, without bleeding; J44.9 Chronic obstructive pulmonary disease, unspecified; E78.5 Hyperlipidemia, unspecified; K63.5 Polyp of colon; E11.21 Type 2 diabetes mellitus with diabetic nephropathy; K64.8 Other hemorrhoids; Z91.19 Patient's noncompliance with other medical treatment and regimen; Z79.4 Long term (current) use of insulin; Z79.82 Long term (current) use of aspirin; Z87.891 Personal history of nicotine dependence
CPT/HCPCS: 36415; 36430; 71045; 80048; 80053; 81001; 82270; 82550; 82570; 82728; 82962; 83036; 83540; 83735; 84100; 84155; 84156; 84165; 84166; 84439; 84443; 84484; 84560; 85014; 85018; 85025; 85045; 85610; 85730; 86644; 86850; 86860; 86870; 86880; 86885; 86900; 86901; 86902; 86906; 86920; 86970; 86971; 86978; 88305; 93005; 93306; 94640; 94664; C9113; J0360; J1815; J1940; J3010; J7040; P9016

== ENCOUNTER 2019-07-25 12:03 | Emergency (ER) | payer OTHER ==
[~2019-07-25] VITALS: Ht 170.2 cm; Wt 75.6 kg
[~2019-07-25 12:03] MED LIST changes: -AZIT250T13 PO; -CARV12.598 PO; -LOSA100T15 ORAL; -SITA1TAB5 PO; -VALS1TAB74 ORAL
[2019-07-25 12:06] VITALS: Ht 170.2 cm; Wt 75.6 kg
[2019-07-25] MEDS ORDERED: SOD CHLORIDE 0.9% 1,000 ML IV ONE (13:30)
[2019-07-25] MEDS ORDERED: CYCLOBENZAPRINE 10 MG TAB PO ONE (13:30)
[2019-07-25 16:54] VITALS: BP 200/93; PULSE 73; RESP 18
== END 2019-07-25 16:54 | disposition home or self-care (01) ==
LOC: FTE 12:03
DX: M54.2 Cervicalgia (principal); J44.9 Chronic obstructive pulmonary disease, unspecified; I10 Essential (primary) hypertension; F17.210 Nicotine dependence, cigarettes, uncomplicated; R79.89 Other specified abnormal findings of blood chemistry; E11.9 Type 2 diabetes mellitus without complications; Z79.4 Long term (current) use of insulin; Z79.82 Long term (current) use of aspirin
CPT/HCPCS: 72040; 80053; 84484; 85025; 93005; 93880; J7030; Z7610